=== PATIENT | female | born 1980 | race Caucasian/White ===

== ENCOUNTER 2017-01-18 12:32 | Emergency (ER) | payer OTHER ==
[~2017-01-18] VITALS: Ht 160 cm; Wt 97.3 kg
[~2017-01-18 12:32] MED LIST: ADULT LOW DOSE81 M1 PO; ASPIRIN325 MG PO; COUMADIN5 MG PO; FLEXERIL5 MG PO; HYDROCODON-ACE1 EAC7 PO; LOVENOX100 MG/1 M SC; MOTRIN800 MG PO; NORCO 5/3251 TABLET PO; NORCO 7.5/321 TABLET PO; PERCOCET 5/31 TABLET PO; VITAMIN D-32000 UNI1 PO; XARELTO20 MG PO; ZANAFLEX2 M1 PO
[2017-01-18] MEDS ORDERED: AUGMENTIN875 MG PO (13:34)
[2017-01-18] MEDS ORDERED: TESSALON PERLE100 MG PO (13:34)
[2017-01-18 14:00] VITALS: BP 135/99
== END 2017-01-18 14:01 | disposition home or self-care (01) ==
LOC: EME 12:32
DX: J01.80 Other acute sinusitis (principal); A49.9 Bacterial infection, unspecified; R05 Cough
CPT/HCPCS: 71020; 99281; 99283

== ENCOUNTER 2017-11-16 21:04 | Emergency (ER) | payer OTHER ==
[~2017-11-16] VITALS: Ht 160 cm; Wt 95.8 kg
[~2017-11-16 21:04] MED LIST changes: +AUGMENTIN875 MG PO; +TESSALON PERLE100 MG PO
[2017-11-16 21:25] LABS: HEMATOCRIT 44.6 % (36.0-46.0); HEMOGLOBIN 14.9 G/DL (11.9-15.5); MCHC 33.4 G/DL (30.0-36.0); MCV 86.9 FL (83-99); PLATELET COUNT 184 K/uL (156-360); RBC DIS.WIDTH-CV 13.6 % (11.8-14.6); RBC DIS.WIDTH-SD 43.7 % (39-53); RED BLOOD COUNT 5.13 M/uL (3.80-5.20); WHITE BLOOD COUNT 8.1 K/uL (4.1-10.2)
[2017-11-16 21:36] LABS: ALBUMIN 4.4 g/dL (3.2-4.8); CHLORIDE 105 mEq/L (99-109); POTASSIUM 3.8 mEq/L (3.7-5.4); SODIUM 136 mEq/L (136-147)
[2017-11-16 21:38] LABS: GLUCOSE 109 mg/dL (70-99)
[2017-11-16 21:39] LABS: TOTAL PROTEIN 7.9 g/dL (6.4-8.3)
[2017-11-16 21:40] LABS: TOTAL BILIRUBIN 1.3 mg/dL (0.0-1.0)
[2017-11-16 21:42] LABS: ALKALINE PHOSPHATASE 34 IU/L (3-129); CREATININE 0.7 mg/dL (0.6-1.3); GFR ESTIMATE (CALCULATED) > 59 mL/min/
[2017-11-16 21:43] LABS: UREA NITROGEN (BUN) 9 mg/dL (9-23)
[2017-11-16 21:44] LABS: AST (GOT) 34 IU/L (2-34)
[2017-11-16 21:45] LABS: ALT (GPT) 37 IU/L (3-49)
[2017-11-16 21:49] LABS: APPEARANCE CLOUDY ((CLEAR)); BILIRUBIN NEGATIVE; BLOOD SMALL; GLUCOSE (STRIP) NEGATIVE; KETONES 20; LEUKOCYTES LARGE; NITRITE NEGATIVE; PROTEIN (STRIP) NEGATIVE; SPECIFIC GRAVITY 1.027 (1.000-1.030); UROBILINOGEN 0.2 MG/DL (0.2-1.0)
[2017-11-16 21:51] LABS: QUANTITATIVE HCG < 4.0 MIU/ML
[2017-11-16 21:52] LABS: COLOR YELLOW ((YELLOW))
[2017-11-16 22:03] LABS: AMORPHOUS URATES CRYSTALS 1+; BACTERIA 2+ /HPF; EPITHELIAL CELLS 3+ /HPF; MUCUS 3+ /LPF; UCUL ADDED? YES
[2017-11-16 22:33] LABS: DIRECT BILIRUBIN 0.4 mg/dL (0.0-0.3)
[2017-11-16 22:34] LABS: LIPASE 12 U/L (1.0-51.0)
[2017-11-16] MEDS ORDERED: ZOFRAN ODT8 MG PO (23:48)
[2017-11-16] MEDS ORDERED: BENTYL20 MG PO (23:48)
[2017-11-17 00:06] VITALS: BP 133/95
== END 2017-11-17 00:28 | disposition home or self-care (01) ==
LOC: EME 21:04
DX: R10.9 Unspecified abdominal pain (principal); R11.2 Nausea with vomiting, unspecified; R19.7 Diarrhea, unspecified; E86.0 Dehydration; R50.9 Fever, unspecified; R00.0 Tachycardia, unspecified
CPT/HCPCS: 80053; 81003; 82248; 83690; 84702; 85027; 87077; 87086; 87186; 99281; 99285; J2405; J7030

== ENCOUNTER 2017-12-24 07:18 | Day surgery (SDC) | payer OTHER ==
[~2017-12-24] VITALS: Ht 160 cm; Wt 95.6 kg
[~2017-12-24 07:18] MED LIST changes: +BENTYL20 MG PO; +CYANOCOBAL1000 MCG/2 IM; +ERGOCALCIF50000 UNIT PO; +EXCEDRIN MIGRA1 EAC3 PO; +SYNTHROID75 MCG PO; +TUMS500 MG PO; +TYLENOL EXTRA500 MG PO; +TYLENOL WITH C1 EACH PO; +ZANTAC150 MG PO; +ZOFRAN ODT8 MG PO
[2017-12-24 07:55] VITALS: BP 137/94
[2017-12-24 14:26] VITALS: BP 134/63
[2017-12-24 19:25] VITALS: BP 119/69
[2017-12-25 00:17] VITALS: BP 138/80
[2017-12-25 04:35] VITALS: BP 125/72
[2017-12-25 06:02] LABS: HEMATOCRIT 36.3 % (36.0-46.0); MCH 29.1 PG (29.0-34.0); MCHC 33.1 G/DL (30.0-36.0); MCV 88.1 FL (83-99); PLATELET COUNT 236 K/uL (156-360); RBC DIS.WIDTH-CV 14.1 % (11.8-14.6); RBC DIS.WIDTH-SD 45.9 % (39-53); RED BLOOD COUNT 4.12 M/uL (3.80-5.20); WHITE BLOOD COUNT 11.6 K/uL (4.1-10.2)
[2017-12-25 07:37] VITALS: BP 128/75
[2017-12-25 11:28] VITALS: BP 139/82
[2017-12-25] MEDS ORDERED: HYDROCODON-ACE1 EAC7 PO (12:12)
[2017-12-25] MEDS ORDERED: LOVENOX40 MG/0.4 SC (12:12)
[2017-12-25] MEDS ORDERED: SYNTHROID100 MCG PO (12:14)
== END 2017-12-25 14:14 | disposition home or self-care (01) ==
LOC: SDC 07:18 → 2EAST 12:35 → 2SOUTH 12:35 → ENRESERV 12:42 → SDC 13:08 → ENRESERV 13:41 → 2EAST 14:32 → SDC 14:52 → 2EAST 12-25 14:14
PROVIDERS: Surgery
DX: E04.2 Nontoxic multinodular goiter (principal); E06.3 Autoimmune thyroiditis; J45.909 Unspecified asthma, uncomplicated; I10 Essential (primary) hypertension; D68.51 Activated protein C resistance; K21.9 Gastro-esophageal reflux disease without esophagitis; E66.9 Obesity, unspecified; Z68.37 Body mass index [BMI] 37.0-37.9, adult; Z86.718 Personal history of other venous thrombosis and embolism; Z79.82 Long term (current) use of aspirin
CPT/HCPCS: 82310; 85027; 88307; G0378; J0131; J0330; J0690; J1100; J1170; J1650; J2250; J2405; J2710; J3010; J7120; Q0175